=== PATIENT | male | born 1940 | race Caucasian/White ===

== ENCOUNTER 2017-06-27 14:36 | Inpatient (IN) ==
[2017-06-27 15:18] LABS: Basophils # 0.1 K/mcL (0.0-0.2); Basophils % 0.5 %; Eosinophils # 0.1 K/mcL (0.0-0.6); Eosinophils % 1.1 %; Hematocrit 45.1 % (37.5-50.1); Hemoglobin 15.1 g/dL (12.9-16.9); Immature Granulocytes % 0.6 % (0-4); Lymphocytes # 2.8 K/mcL (0.6-4.6); Lymphocytes % 28.6 %; Mean Corpuscular HGB Conc 33.5 g/dL (31.6-35.5); Mean Corpuscular Hemoglobin 31.3 pg (28.0-33.3); Mean Corpuscular Volume 93.4 fL (83.0-100.0); Mean Platelet Volume 9.7 fL (9.4-12.4); Monocytes # 0.9 K/mcL (0.0-1.3); Monocytes % 9.2 %; Neutrophils # 5.8 K/mcL (1.6-8.9); Platelet Count 207 K/mcL (140-400); Red Blood Count 4.83 M/mcL (4.19-5.50); Red Cell Distribution Width 12.7 % (11.5-14.5)
[2017-06-27 15:36] LABS: BUN/Creatinine Ratio 10 (6-26); Blood Urea Nitrogen 13 mg/dL (8-23); Calcium 8.8 mg/dL (8.6-10.3); Carbon Dioxide 27 mEq/L (23-29); Chloride 103 mEq/L (98-107); Glucose 180 mg/dL (70-105); Osmolality,Calculated 287 (280-300); Potassium 3.8 mEq/L (3.5-5.1); Sodium 136 mEq/L (136-145); eGFR For African Americans > 60 (> 60); eGFR For Non-African Americans 56 (> 60)
--- NOTE | 2017-06-27 15:44 | Emergency Department Note ---
Disposition Clinical Impression: Cellulitis Qualifiers: Site of cellulitis: extremity Site of cellulitis of extremity: upper extremity Laterality: left Qualified Code(s): L03.114 - Cellulitis of left upper limb Disposition: Admitted As Inpatient Condition: Good Referrals: Bird Carpenter MD [Primary Care Provider] - Forms: ED Satisfaction Letter Time of Disposition: 16:51 Extremity Problem HPI - General Chief complaint: ED Extremity Problem,Nontraumatic Stated complaint: Cellulitis LUE Time Seen by Provider: 06/27/17 14:48 Source: patient Mode of arrival: ambulatory Limitations: no limitations Nursing Notes Reviewed: Yes Vital Signs Reviewed: Yes - History of Present Illness HPI Narrative: This is a 77 year-old male with history of DM, a-fib, s/p pacer/AICD, who presents with possible cellulitis of the left upper extremity. Patient underwent venipuncture to the left antecub for routine labs last week. About 3 days ago, patient noticed redness and swelling of the forearm. His PCP Dr. Carpneter prescribed Bactrim and Keflex, but the swelling and redness have failed to improve, so he sent patient to the ED. Patient says the pain is mild. He denies any fever, nausea, vomiting, or other symptoms of systemic illness. Pt Subjective Complaint: extremity swelling Onset (ago): day(s) (3) Consistency: constant Injury Location: left, upper extremity Pain Scale: 0 Improves with: elevation Worsens with: nothing Associated symptoms: Reports: swelling, redness. Denies: fever - Related Data Home Medications Medication Instructions Recorded Confirmed Brimonidine Tartrate [Alphagan P] 1 drop RIGHT EYE BID 06/27/17 06/27/17 Cephalexin [Keflex] 500 mg PO BID 06/27/17 06/27/17 Dorzolamide/Timolol 1 drop RIGHT EYE BID 06/27/17 06/27/17 Furosemide [Lasix] 20 mg PO DAILY 06/27/17 06/27/17 Insulin Glargine,Hum.rec.anlog 12 units SQ HS 06/27/17 06/27/17 [Lantus Solostar] Liraglutide [Victoza 3-Mik] 6 units SQ DAILY 06/27/17 06/27/17 Metoprolol Tartrate [Lopressor] 25 mg PO BID 06/27/17 06/27/17 PrednisoLONE Acetate 1% Opth 1 drop BOTH EYES BID 06/27/17 06/27/17 [PredFORTE 1%] Sulfamethoxazole/Trimeth DS 1 each PO BID 06/27/17 06/27/17 [Bactrim DS] Warfarin Sodium 5 mg PO DAILY 06/27/17 06/27/17 glipiZIDE [Glipizide ER] 10 mg PO BID 06/27/17 06/27/17 Allergies Allergy/AdvReac Type Severity Reaction Status Date / Time No Known Allergies Allergy Verified 06/27/17 14:45 All systems ED: reviewed and negative except as stated. Review of Systems: As Per HPI Constitutional: Reports: as per HPI. Denies: fever Musculoskeletal: Denies: arthralgia Integumentary: Reports: as per HPI Neurological: Denies: weakness, numbness Past Medical History - Past Medical History Medical history: Reports: atrial fibrillation, diabetes Psychiatric history: Reports: no psych history - Social History Smoking Status: Never smoker Smokeless Tobacco Status: No Alcohol use: Reports: none Drug use: Reports: none Physical Exam - General Limitations: no limitations General appearance: alert - Head Head exam: atraumatic, normocephalic - Eye Eye exam: Present: normal appearance - Neck Neck exam: Present: normal inspection - Respiratory Respiratory exam: Absent: respiratory distress - Expanded Upper Extremity Exam Shoulder exam: Present: normal inspection Arm exam: Present: normal inspection Elbow exam: Present: full ROM, swelling, erythema. Absent: crepitus Forearm/Wrist exam: Present: swelling, erythema. Absent: crepitus Hand exam: Present: full ROM, swelling, erythema. Absent: crepitus Neuromotor exam: Normal: other (intact) Neurosensory exam: Normal: radial nerve, ulnar nerve, median nerve Vascular exam: Normal: capillary refill - Neurological Exam Neurological exam: Present: alert, oriented X3. Absent: motor sensory deficit - Psychiatric Psychiatric exam: Present: normal affect, normal mood - Skin Skin exam: Present: erythema (erythema and edema (with clear seepage) from hand to elbow) Course - Reevaluation(s) Reevaluation #1: Discussed test results with patient and answered his questions. He is in agreement with admission. Time: 16:50 - Consultations Consultation #1: Discussed case with Dr. Rao, who has accepted patient for admission. Time: 16:50 Vital Signs Temperature 0 F L 06/27/17 14:38 Pulse Rate 79 06/27/17 14:38 Respiratory Rate 18 06/27/17 14:38 Blood Pressure 142/77 06/27/17 14:38 O2 Sat by Pulse Oximetry 100 06/27/17 14:38 Temperature 0 F L 06/27/17 14:38 Pulse Rate 76 06/27/17 16:35 Respiratory Rate 20 06/27/17 16:35 Blood Pressure 101/81 06/27/17 16:35 O2 Sat by Pulse Oximetry 99 06/27/17 16:35 Oxygen Delivery Oxygen Delivery Room Air Extremity Problem, Nontraumati - MDM Narrative Medical decision making narrative: Patient presented with probable cellulitis of the left forearm and hand, not improving despite appropriate antibiotics therapy. We will treat with Vanc in the ED and admit for additional IV antibiotics. - Lab Data Lab results reviewed: Yes I reviewed the patient's lab results. Result diagrams: 06/27/17 15:07 06/27/17 15:07 Lab Results 06/27/17 06/27/17 Range/Units 15:07 15:07 WBC 9.7 (4.3-11.1) K/mcL RBC 4.83 (4.19-5.50) M/mcL Hgb 15.1 (12.9-16.9) g/dL Hct 45.1 (37.5-50.1) % MCV 93.4 (83.0-100.0) fL MCH 31.3 (28.0-33.3) pg MCHC 33.5 (31.6-35.5) g/dL RDW 12.7 (11.5-14.5) % Plt Count 207 (140-400) K/mcL MPV 9.7 (9.4-12.4) fL Immature Gran % 0.6 (0-4) % Seg Neutrophils % 60.0 % Lymphocytes % 28.6 % Monocytes % 9.2 % Eosinophils % 1.1 % Basophils % 0.5 % Neutrophils # 5.8 (1.6-8.9) K/mcL Lymphocytes # 2.8 (0.6-4.6) K/mcL Monocytes # 0.9 (0.0-1.3) K/mcL Eosinophils # 0.1 (0.0-0.6) K/mcL Basophils # 0.1 (0.0-0.2) K/mcL Sodium 136 (136-145) mEq/L Potassium 3.8 (3.5-5.1) mEq/L Chloride 103 (98-107) mEq/L Carbon Dioxide 27 (23-29) mEq/L BUN 13 (8-23) mg/dL Creatinine 1.25 (0.70-1.30) mg/dL Est GFR ( Amer) > 60 (> 60) Est GFR (Non-Af Amer) 56 L (> 60) BUN/Creatinine Ratio 10 (6-26) Glucose 180 H (70-105) mg/dL Calculated Osmolality 287 (280-300) Calcium 8.8 (8.6-10.3) mg/dL
[2017-06-27] MEDS ORDERED: *HR* Dextrose 50 % in Water (Syg) 50 ML SYRINGE IVP PRN (17:04)
[2017-06-27] MEDS ORDERED: D5% in Water 1,000 ML IVC PRN (17:04)
[2017-06-27] MEDS ORDERED: Dextrose Gel 15 GM/37.5 ML TUBE PO PRN ×2 (17:04)
[2017-06-27] MEDS ORDERED: Acetaminophen 325 MG TABLET PO PRN (17:07)
[2017-06-27] MEDS ORDERED: Naloxone 0.4 MG/ML INJ IVP PRN (17:07)
--- NOTE | 2017-06-27 17:12 | Internal Med History&Physical ---
Date of Encounter: 06/27/17 Time of Encounter: 17:10 Assessment and Plan (1) Cellulitis Current visit: Yes Status: Acute Failed outpatient therapy. Will start IV ceftriaxone for now and monitor the area. Hemodynamically stable other than borderline low blood pressure. We will start gentle hydration.. Will cathie the area Qualifiers: Site of cellulitis: extremity Site of cellulitis of extremity: upper extremity Laterality: left Qualified Code(s): L03.114 - Cellulitis of left upper limb (2) Diabetes mellitus Current visit: Yes Status: Acute Will start SSI. Accuchecks. Qualifiers: Diabetes mellitus type: type 2 Diabetes mellitus group home insulin use: without group home use Diabetes mellitus complication status: without complication Qualified Code(s): E11.9 - Type 2 diabetes mellitus without complications (3) Atrial fibrillation Current visit: No Status: Acute Hold BB while BP is on the lower side. c/w coumadin per pharmacy Qualifiers: Atrial fibrillation type: paroxysmal Qualified Code(s): I48.0 - Paroxysmal atrial fibrillation (4) DVT prophylaxis Current visit: Yes Status: Acute On Coumadin Internal Medicine - H&P: HPI Chief complaint: Arm swelling Admitted From: Emergency Dept Plans for Post Hospital Care: Home History of present illness: Mr. Liz is a 77 year old male with history of DM, a-fib, s/p pacer/AICD, who presented with suspected cellulitis of the left upper extremity. Symptoms started sometime last week after routine venipuncture to the left antecub for routine labs last week. For the last 3 days he noticed redness and swelling in the area. He went to his PCP who gave him Bactrim and Keflex but symptoms only worsened and he followed up with his primary care physician and was sent into the emergency department. Denies any fever, chills, nausea, vomiting, headache , blurry vision, chest pain, shortness of breath, abdominal pain, urinary symptoms, or neurological symptoms. In the ED the patient was hemodynamically stable other than borderline blood pressure. Labs were mostly unremarkable. The patient has no leukocytosis. Was given a dose of vancomycin. Creatinine was 1.25. Seems to be a little bit above baseline. Past Med Surg Social Fam HX - Past Medical History Medical history: atrial fibrillation, diabetes Psychiatric history: no psych history - Social History Smoking Status: Never smoker Smokeless Tobacco Status: No Alcohol use: none Drug use: none Internal Medicine - H&P: Meds Brimonidine Tartrate [Alphagan P] 1 drop RIGHT EYE BID 06/27/17 [History] Cephalexin [Keflex] 500 mg PO BID 06/27/17 [History] Dorzolamide/Timolol 1 drop RIGHT EYE BID 06/27/17 [History] Furosemide [Lasix] 20 mg PO DAILY 06/27/17 [History] Insulin Glargine,Hum.rec.anlog [Basaglar Kwikpen U-100] 12 unit SQ HS 06/27/17 [ History] Liraglutide [Victoza 3-Mik] 6 units SQ DAILY 06/27/17 [History] Metoprolol [Lopressor] 25 mg PO BID 06/27/17 [History] PrednisoLONE Acetate 1% Opth [PredFORTE 1%] 1 drop BOTH EYES BID 06/27/17 [ History] Sulfamethoxazole/Trimeth DS [Bactrim DS] 1 each PO BID 06/27/17 [History] Warfarin Sodium 5 mg PO DAILY 06/27/17 [History] Warfarin [Coumadin] 2.5 mg PO MOWEFR 06/27/17 [History] glipiZIDE [Glipizide ER] 10 mg PO BID 06/27/17 [History] 3 Allergy/AdvReac Type Severity Reaction Status Date / Time No Known Allergies Allergy Verified 06/27/17 14:45 All Systems PM: A 10-system review of systems was performed and is negative for pertinent findings except as documented above in the HPI. Review of systems: All systems reviewed are negative except for as mentioned above - Constitutional Vitals: Temp Pulse Resp BP Pulse Ox 0 F L 71 20 115/66 99 06/27/17 14:38 06/27/17 17:01 06/27/17 17:01 06/27/17 17:01 06/27/17 17:01 Exam: GEN: NAD HEENT: AT, NC, No cyanosis, oral mucosa is moist, No JVD Lymphatics: No lymphadenoapthy Eyes: Extrocular muscles intact, anicteric CVS:RRR. S1, S2, No m/r/g RESP: CTAB ABD: Soft, NT, ND, +BS EXT: No LE edema, No rashes, 2+ DP. Left forearm swelling noted and erythema noted on both extensor and flexor sides extending to the hand on the left. NEURO: Nonfocal, CN II-XII intact, No focal motor or sensory deficits Psych: Cooperative, Not anxious or depressed Internal Med - H&P Results - Labs CBC & Chem 7: 06/27/17 15:07 06/27/17 15:07 Labs: Short CBC 06/27/17 Range/Units 15:07 WBC 9.7 (4.3-11.1) K/mcL Hgb 15.1 (12.9-16.9) g/dL Hct 45.1 (37.5-50.1) % Plt Count 207 (140-400) K/mcL Neutrophils # 5.8 (1.6-8.9) K/mcL BMP 06/27/17 15:07 Sodium 136 Potassium 3.8 Chloride 103 Carbon Dioxide 27 BUN 13 Creatinine 1.25 Glucose 180 H Calcium 8.8
[2017-06-27 17:27] LABS: INR 2.4
[2017-06-27] MEDS ORDERED: Warfarin perPT PO SCH (18:00)
[2017-06-27] MEDS ORDERED: *HR* Warfarin 2.5 MG TABLET PO ONE (18:15)
[2017-06-27] MEDS: 0.9 % Sodium Chloride 1,000 ML IVC SCH (18:34)
[2017-06-27] MEDS: Insulin LISPRO 300 UNITS/3 ML VIAL SQ SCH (21:41)
[2017-06-27] MEDS: PrednisoLONE Acetate 1% Opth 5 ML BOTTLE BOTH EYES SCH (21:59)
[2017-06-27] MEDS: Dorzolamide/Timolol OPTH 10 ML BOTTLE RIGHT EYE SCH (22:00)
[2017-06-27] MEDS ORDERED: *HR* Heparin 5,000 UNIT/ML VIAL SQ SCH (22:00)
[2017-06-28] MEDS: 0.9 % Sodium Chloride 1,000 ML IVC SCH (04:06)
[2017-06-28 07:20] LABS: INR 2.4; Prothrombin Time 26.3 Seconds (9.4-12.1)
[2017-06-28 07:22] LABS: BUN/Creatinine Ratio 12 (6-26); Blood Urea Nitrogen 12 mg/dL (8-23); Calcium 8.3 mg/dL (8.6-10.3); Carbon Dioxide 22 mEq/L (23-29); Chloride 110 mEq/L (98-107); Glucose 172 mg/dL (70-105); Magnesium 2.1 mg/dL (1.6-2.6); Osmolality,Calculated 292 (280-300); Potassium 3.7 mEq/L (3.5-5.1); Sodium 139 mEq/L (136-145); eGFR For African Americans > 60 (> 60); eGFR For Non-African Americans > 60 (> 60)
[2017-06-28 07:28] LABS: Basophils # 0.1 K/mcL (0.0-0.2); Basophils % 0.6 %; Eosinophils # 0.2 K/mcL (0.0-0.6); Eosinophils % 1.8 %; Hematocrit 41.7 % (37.5-50.1); Hemoglobin 13.6 g/dL (12.9-16.9); Immature Granulocytes % 0.9 % (0-4); Lymphocytes # 2.4 K/mcL (0.6-4.6); Mean Corpuscular HGB Conc 32.6 g/dL (31.6-35.5); Mean Corpuscular Hemoglobin 30.9 pg (28.0-33.3); Mean Corpuscular Volume 94.8 fL (83.0-100.0); Mean Platelet Volume 10.3 fL (9.4-12.4); Monocytes # 0.8 K/mcL (0.0-1.3); Monocytes % 10.4 %; Neutrophils # 4.6 K/mcL (1.6-8.9); Platelet Count 184 K/mcL (140-400); Red Cell Distribution Width 12.9 % (11.5-14.5); Segmented Neutrophils % 56.3 %
[2017-06-28] MEDS: Dorzolamide/Timolol OPTH 10 ML BOTTLE RIGHT EYE SCH ×2 (08:18→20:35)
[2017-06-28] MEDS: Furosemide 20 MG TABLET PO SCH (08:20)
[2017-06-28] MEDS: PrednisoLONE Acetate 1% Opth 5 ML BOTTLE BOTH EYES SCH ×2 (08:20→20:34)
[2017-06-28] MEDS: Insulin LISPRO 300 UNITS/3 ML VIAL SQ SCH ×4 (08:22→20:36)
[2017-06-28] MEDS ORDERED: cefTRIAXone 1,000 MG in Water for inj. (sterile) 20 ML 10 ML IVP SCH (09:00)
--- NOTE | 2017-06-28 12:06 | Internal Med Progress Note ---
Date of Encounter: 06/28/17 Time of Encounter: 12:04 - Assessment and plan (1) Cellulitis Current Visit: Yes Status: Acute Assessment and plan: Failed outpatient therapy. Looks better. He received a dose of ceftriaxone today and yesterday. Patient received a dose vanco in the ED yesterday. I dont know which abx is helping him. I will give a dose of vancomycing here too. Hemodynamically stable other than borderline low blood pressure. Stop IV fluids. Possibly will more day of IV antibiotics and discharged tomorrow on oral. Qualifiers: Site of cellulitis: extremity Site of cellulitis of extremity: upper extremity Laterality: left Qualified Code(s): L03.114 - Cellulitis of left upper limb (2) Diabetes mellitus Current Visit: Yes Status: Acute Assessment and plan: Continue insulin sliding scale. Continue Accu-Cheks. Adequate control Qualifiers: Diabetes mellitus type: type 2 Diabetes mellitus shelter insulin use: without laborer marine terminal use Diabetes mellitus complication status: without complication Qualified Code(s): E11.9 - Type 2 diabetes mellitus without complications (3) Atrial fibrillation Current Visit: No Status: Acute Assessment and plan: Blood pressure is improved now. Can resume beta uzma. Continue with Coumadin per pharmacy. Qualifiers: Atrial fibrillation type: paroxysmal Qualified Code(s): I48.0 - Paroxysmal atrial fibrillation (4) DVT prophylaxis Current Visit: Yes Status: Acute Assessment and plan: Coumadin - Subjective Interval history: No acute events. Says his arm swelling and redness are better. Afebrile. Admitted yesterday with left upper extremity cellulitis that failed outpatient therapy. - Constitutional Vitals: Temp Pulse Resp BP Pulse Ox 97.6 F 75 18 123/79 96 06/28/17 11:20 06/28/17 11:20 06/28/17 11:20 06/28/17 11:20 06/28/17 11:20 Exam: GEN: NAD CVS:RRR. S1, S2, No m/r/g RESP: CTAB ABD: Soft, NT, ND, +BS EXT: No LE edema, No rashes, 2+ DP. Left forearm swelling noted and erythema noted on both extensor and flexor sides extending to the hand on the left. NEURO: Nonfocal, CN II-XII intact, No focal motor or sensory deficits Internal Medicine: Result - Labs CBC & Chem 7: 06/28/17 06:04 06/28/17 06:04 Labs: Short CBC 06/28/17 Range/Units 06:04 WBC 8.1 (4.3-11.1) K/mcL Hgb 13.6 D (12.9-16.9) g/dL Hct 41.7 (37.5-50.1) % Plt Count 184 (140-400) K/mcL Neutrophils # 4.6 (1.6-8.9) K/mcL BMP 06/28/17 06:04 Sodium 139 Potassium 3.7 Chloride 110 H Carbon Dioxide 22 L BUN 12 Creatinine 0.97 Glucose 172 H Calcium 8.3 L - ABG Interpretation ABG results: PT/INR, D-dimer PT 26.3 Seconds (9.4-12.1) H 06/28/17 06:04 Consult Discharge Plan - Plan Referrals: Bird Carpenter MD [Primary Care Provider] -
[2017-06-28] MEDS ORDERED: *HR* Warfarin 5 MG TABLET PO ONE (18:00)
[2017-06-28] MEDS ORDERED: Insulin DETEMIR 100 UNIT/ML X5UNITS SQ SCH ×2 (21:00)
[2017-06-29 03:38] LABS: Basophils # 0.1 K/mcL (0.0-0.2); Basophils % 0.8 %; Eosinophils # 0.1 K/mcL (0.0-0.6); Eosinophils % 1.9 %; Hematocrit 41.3 % (37.5-50.1); Hemoglobin 13.5 g/dL (12.9-16.9); Immature Granulocytes % 0.7 % (0-4); Lymphocytes # 2.5 K/mcL (0.6-4.6); Lymphocytes % 33.1 %; Mean Corpuscular HGB Conc 32.7 g/dL (31.6-35.5); Mean Corpuscular Hemoglobin 30.6 pg (28.0-33.3); Mean Corpuscular Volume 93.7 fL (83.0-100.0); Mean Platelet Volume 9.8 fL (9.4-12.4); Monocytes # 0.8 K/mcL (0.0-1.3); Monocytes % 10.7 %; Neutrophils # 3.9 K/mcL (1.6-8.9); Platelet Count 196 K/mcL (140-400); Red Blood Count 4.41 M/mcL (4.19-5.50); Red Cell Distribution Width 12.7 % (11.5-14.5); Segmented Neutrophils % 52.8 %
[2017-06-29 03:49] LABS: INR 2.2; Prothrombin Time 24.1 Seconds (9.4-12.1)
[2017-06-29 06:28] LABS: BUN/Creatinine Ratio 10 (6-26); Blood Urea Nitrogen 12 mg/dL (8-23); Calcium 8.6 mg/dL (8.6-10.3); Carbon Dioxide 23 mEq/L (23-29); Chloride 107 mEq/L (98-107); Glucose 129 mg/dL (70-105); Magnesium 2.1 mg/dL (1.6-2.6); Osmolality,Calculated 285 (280-300); Potassium 3.6 mEq/L (3.5-5.1); Sodium 137 mEq/L (136-145); eGFR For African Americans > 60 (> 60); eGFR For Non-African Americans 57 (> 60)
--- NOTE | 2017-06-29 07:30 | Discharge Summary ---
- NOTES TO OUTPATIENT PROVIDER Notes to Outpatient Provider: Treated for cellulitis and discharged on Doxy. I have advised him to check his BP daily and only take metoprolol if his systolic BP is >120. His BP has fluctuated here from low to acceptable Orders not resulted at time of discharge: Pending orders 06/30/17 04:00 INR/PT [Prothrombin Time INR] [COAG] AM 0400 Date of Encounter: 06/29/17 Time of Encounter: 07:27 - Discharge Diagnosis (1) Cellulitis Priority: Primary Status: Acute Qualifiers: Site of cellulitis: extremity Site of cellulitis of extremity: upper extremity Laterality: left Qualified Code(s): L03.114 - Cellulitis of left upper limb (2) Diabetes mellitus Priority: Secondary Status: Acute Qualifiers: Diabetes mellitus type: type 2 Diabetes mellitus detention insulin use: without detention use Diabetes mellitus complication status: without complication Qualified Code(s): E11.9 - Type 2 diabetes mellitus without complications (3) Atrial fibrillation Priority: Secondary Status: Acute Qualifiers: Atrial fibrillation type: paroxysmal Qualified Code(s): I48.0 - Paroxysmal atrial fibrillation Hospital course: Mr. Liz is a 77 year old male with history of DM, a-fib, s/p pacer/AICD, who presented with suspected cellulitis of the left upper extremity. Symptoms started sometime last week after routine venipuncture to the left antecub for routine labs last week. For the last 3 days he noticed redness and swelling in the area. He went to his PCP who gave him Bactrim and Keflex but symptoms only worsened and he followed up with his primary care physician and was sent into the emergency department. In the ED the patient was hemodynamically stable other than borderline blood pressure. Labs were mostly unremarkable. The patient had no leukocytosis. Was given a dose of vancomycin. The patient was admitted for cellulitis that failed outpatient treatment. Because of the fact that he was given vancomycin and showed improvement I continued his vancomycin inpatient. Ended up discharging the patient on doxycycline. He received 3 doses of inpatient vancomycin while hospitalized for 3 days. She was stable for discharge on 06/29. - Time Spent with Patient Total time spent providing and/or coordinating discharge services: - Discharge Medications Prescriptions: Doxycycline 100 mg PO BID #10 capsule Home Medications: Brimonidine Tartrate [Alphagan P] 1 drop RIGHT EYE BID 06/27/17 [History] Dorzolamide/Timolol [Cosopt] 1 drop RIGHT EYE BID 06/27/17 [History] Furosemide [Lasix] 20 mg PO DAILY 06/27/17 [History] Insulin Glargine,Hum.rec.anlog [Basaglar Kwikpen U-100] 12 unit SQ HS 06/27/17 [ History] Liraglutide [Victoza 3-Mik] 0.6 mg SQ DAILY 06/27/17 [History] Metoprolol [Lopressor] 25 mg PO BID 06/27/17 [History] PrednisoLONE Acetate 1% Opth [PredFORTE 1%] 1 drop BOTH EYES BID 06/27/17 [ History] Warfarin Sodium 5 mg PO SUTUTHSA 06/27/17 [History] Warfarin [Coumadin] 2.5 mg PO MOWEFR 06/27/17 [History] glipiZIDE [Glipizide ER] 10 mg PO DAILY 06/27/17 [History] Doxycycline 100 mg PO BID #10 capsule 06/29/17 [Rx] Allergies/Adverse Reactions: 3 Allergy/AdvReac Type Severity Reaction Status Date / Time No Known Allergies Allergy Verified 06/27/17 14:45 Date of admission: 06/27/17 17:17 Primary care physician: Bird Carpenter MD - Constitutional Vitals: Temp Pulse Resp BP Pulse Ox 97.9 F 51 15 102/53 94 06/29/17 03:55 06/29/17 03:55 06/29/17 03:55 06/29/17 03:55 06/29/17 03:55 Exam: GEN: NAD CVS:RRR. S1, S2, No m/r/g RESP: CTAB ABD: Soft, NT, ND, +BS EXT: No LE edema, No rashes, 2+ DP. Left forearm swelling noted and erythema noted on both extensor and flexor sides extending to the hand on the left. NEURO: Nonfocal, CN II-XII intact, No focal motor or sensory deficits - Patient Status Disposition: Home, Self-Care Condition: Fair Overall status at discharge: patient is progressing back to baseline - Discharge Instructions Follow Up With: Bird Carpenter MD [Primary Care Provider] - Additional Instructions: Check your blood pressure every morning Take Metoprolol only if your blood pressure is >120 systolic (The top number) - Diet and Activity Activity: increase activity as tolerated Diet: diabetic diet
[2017-06-29] MEDS: Insulin LISPRO 300 UNITS/3 ML VIAL SQ SCH ×2 (07:55→12:15)
[2017-06-29] MEDS: PrednisoLONE Acetate 1% Opth 5 ML BOTTLE BOTH EYES SCH (08:48)
[2017-06-29] MEDS: Dorzolamide/Timolol OPTH 10 ML BOTTLE RIGHT EYE SCH (08:49)
[2017-06-29] MEDS: Furosemide 20 MG TABLET PO SCH (08:50)
[2017-06-29 10:58] VITALS: BP 125/83
[2017-06-29] MEDS ORDERED: Aminoglycoside Consult 1 EACH MC ONE (14:29)
[2017-06-29] MEDS ORDERED: *HR* Warfarin 5 MG TABLET PO ONE (18:00)
== END 2017-06-29 14:30 | disposition home or self-care (01) | DRG 603 ==
LOC: EMEROO 14:36 → 3ANU 14:36
PROVIDERS: ADMIT Internal Medicine; ATTEND Internal Medicine